=== PATIENT | female | born 1980 | race Caucasian/White ===

== ENCOUNTER → 2025-02-10 | Day surgery (SDC) | payer MEDICAID ==
[~2025-02-10] MED LIST: ASPI-1153 PO; CHOL-36 PO; DALF10TA PO; KESIMPTA INJ; LIDOCAINE HCL 1% 10 MG/ML 10ML VIAL ONE; LOSA100T33 PO; METO-539 PO; SODIUM BICARBONATE 4.2% 2.5MEQ/5ML VIAL IV ONE
== END | disposition home or self-care (01) ==
LOC: RAD 10:26
PROVIDERS: ATTEND Surgery Surgical Oncology
DX: N60.81 Other benign mammary dysplasias of right breast (principal); Z79.82 Long term (current) use of aspirin; Z80.0 Family history of malignant neoplasm of digestive organs
CPT/HCPCS: 19281; J2003; J3490; A4648

== ENCOUNTER → 2025-02-15 | Day surgery (SDC) | payer MEDICAID ==
[~2025-02-15] VITALS: Ht 157.5 cm; Wt 87.1 kg
[~2025-02-15] MED LIST changes: +ACETAMINOPHEN 1000MG/100ML 100 ML IV ONE; +BUPIVACAINE HCL/PF 0.5% (5MG/ML) 10ML ONE; +CEFAZOLIN SODIUM 1000MG/VIAL ONE; +FAMOTIDINE 20MG/2ML VIAL IV ONE; +FENTANYL CITRATE/PF 50MCG/ML 2ML VIAL ONE; +HYDROMORPHONE HCL/PF 1MG/ML INJ IV PRN; +LACTATED RINGERS 1,000 ML IV SCH; -LIDOCAINE HCL 1% 10 MG/ML 10ML VIAL ONE; +LIDOCAINE HCL/EPINEPHRINE 1%-EPI 1:100,000 20ML VIAL ONE; +METOCLOPRAMIDE HCL 10MG/2ML VIAL ONE; +MIDAZOLAM HCL 2 MG/2 ML VIAL ONE; +ONDANSETRON HCL 4MG/2ML INJ IV PRN; +ONDANSETRON HCL 4MG/2ML INJ ONE; +PROPOFOL 200MG/20ML VIAL IV ONE; -SODIUM BICARBONATE 4.2% 2.5MEQ/5ML VIAL IV ONE
[2025-02-15 08:39] LABS: UCG KIT LOT# 946166; UCG SCREEN NEGATIVE
== END | disposition home or self-care (01) ==
LOC: OR 07:49
PROVIDERS: ATTEND Surgery Surgical Oncology
DX: N60.81 Other benign mammary dysplasias of right breast (principal); G43.909 Migraine, unspecified, not intractable, without status migrainosus; Z79.899 Other long term (current) drug therapy; Z98.890 Other specified postprocedural states; Z79.82 Long term (current) use of aspirin; Z88.0 Allergy status to penicillin
CPT/HCPCS: 19125; 76098; 81025; 88305; J3010; J0665; J0690; J1308; J2004; J2765; J2250; J2405; J2704; J0131